=== PATIENT | female | born 1945 ===

== ENCOUNTER 2016-10-17 09:16 | Emergency (ER) | payer MEDICARE ==
[2016-10-17 09:30] VITALS: BMI 31.1
[2016-10-17] MEDS ORDERED: Sodium Chloride 0.9% 1,000 ML IV STA (09:56)
[2016-10-17] MEDS ORDERED: Sodium Chloride 0.9% 1,000 ML ONE (10:13)
--- NOTE | 2016-10-17 10:13 | C.PDOC ---
History Of Present Illness 71 y/o female presents to the ED complaining that she ran out of her insulin and syringes. Patient reports that she is a visitor from [facility] with history of diabetes and states that her sugar was 250 this morning. She also complains of abdominal pain to the RUQ x 3 days. Patient admits to history of cholecystectomy. Denies fevers, chills, nausea, vomiting, dizziness, chest pain , shortness of breath, urinary symptoms, or other complaints. Chief Complaint (Nursing): High Blood Sugar History Per: Patient History/Exam Limitations: no limitations Onset/Duration Of Symptoms: Days, Persistent Current Symptoms Are (Timing): Still Present Current Diabetic Medications: Insulin Causative (Exacerbating) Factor(s): Missed Taking Medication Treatment Prior To Provider Evaluation: None Recent travel outside of the [place]: Yes ([facility]) Past Medical History Reviewed: Historical Data, Nursing Documentation, Vital Signs Vital Signs: Last Vital Signs Temp 98.1 F 10/17/16 15:46 Pulse 70 10/17/16 15:46 Resp 20 10/17/16 15:46 BP 146/66 10/17/16 15:46 Pulse Ox 98 10/17/16 15:46 - Medical History PMH: Arthritis, Diabetes, HTN Surgical History: Cholecystectomy Other Surgeries: hysterectomy, Lt. knee surgery Family History: States: Unknown Family Hx - Social History Hx Tobacco Use: No Hx Alcohol Use: No Hx Substance Use: No - Immunization History Hx Tetanus Toxoid Vaccination: No Hx Influenza Vaccination: No Hx Pneumococcal Vaccination: No Review Of Systems Except As Marked, All Systems Reviewed And Found Negative. Constitutional: Positive for: Other (elevated blood sugar). Negative for: Fever , Chills Cardiovascular: Negative for: Chest Pain Respiratory: Negative for: Shortness of Breath Gastrointestinal: Positive for: Abdominal Pain (RUQ). Negative for: Nausea, Vomiting Genitourinary: Negative for: Dysuria, Hematuria Neurological: Negative for: Dizziness Physical Exam - Physical Exam Appears: Non-toxic, No Acute Distress Skin: Normal Color, Warm, Dry Head: Atraumatic, Normacephalic Eye(s): bilateral: Normal Inspection, PERRL Oral Mucosa: Moist Neck: Normal ROM, Supple Chest: Symmetrical Cardiovascular: Rhythm Regular Respiratory: Normal Breath Sounds, No Rales, No Rhonchi, No Wheezing Gastrointestinal/Abdominal: Soft, Tenderness (RUQ), No Guarding, No Rebound, Other (large post operative scar) Back: Normal Inspection, No CVA Tenderness Extremity: Normal ROM, No Swelling Neurological/Psych: Oriented x3, Normal Speech, Normal Cognition ED Course And Treatment - Laboratory Results Result Diagrams: 10/17/16 10:14 10/17/16 10:14 O2 Sat by Pulse Oximetry: 98 (ra) Pulse Ox Interpretation: Normal - Other Rad Chest X-Ray X-Ray: Viewed By Me, Read By Radiologist Interpretation: Accession No. : [id number]. Patient Name / ID : ALEJANDRO ROSALES / [id number]. Exam Date : 10/17/2016 11:25:43 ( Addendum_Approved ). Study Comment : Sex / Age : F / 71Y. Creator : Venus Dennis MD. Dictator : Venus Dennis MD. Pest Control Specialist : Lozenge Maker Helper : Venus Dennis MD. Approver2 : Report Date : 10/17/2016 12:04:24. My Comment : . Upon re- evaluation, there is a nodular opacity adjacent to the aortic arch in the left upper lobe of unclear etiology. Recommend PA lateral chest radiograph for better visualization. [ Addendum Report Added by Venus Dennis MD at 10/17/2016 12:09: 39 ]. HISTORY: RUQ pain. COMPARISON: No prior. FINDINGS: LUNGS: Increased pulmonary vascular congestion. PLEURA: No significant pleural effusion identified, no pneumothorax apparent. CARDIOVASCULAR: Normal. OSSEOUS STRUCTURES: The osseous structures demonstrate degenerative changes. VISUALIZED UPPER ABDOMEN: Upper abdomen is suboptimally evaluated. OTHER FINDINGS: None. IMPRESSION: Increased pulmonary vascular congestion. CXR X-Ray: Viewed By Me, Read By Radiologist Interpretation: Pest Control Specialist : Lozenge Maker Helper : Venus Dennis MD. Approver2 : Report Date : 10/17/2016 15:05:34. My Comment : . HISTORY: nodule? COMPARISON: 10/17/2016. TECHNIQUE: Chest PA and lateral. FINDINGS: LUNGS: Bilateral hilar enlargement. Mild pulmonary vascular congestion. Previously identified opacity adjacent to the aortic arch on the left again seen however appears less conspicuous. PLEURA: No significant pleural effusion identified. No pneumothorax apparent. CARDIOVASCULAR: Large cardiomediastinal silhouette. OSSEOUS STRUCTURES: The osseous structures demonstrate degenerative changes. VISUALIZED UPPER ABDOMEN: Normal. OTHER FINDINGS: None. IMPRESSION: Previously identified opacity adjacent to the aortic arch again seen however appears less conspicuous. Follow-up chest radiograph can be obtained in 2 weeks to evaluate for resolution. If at that time, the opacity persists, chest CT should be obtained. Bilateral hilar enlargement with mild pulmonary vascular congestion. Enlarged cardiomediastinal silhouette. Discussed with KAROLINE Faye at approximately 3 p.m. on 10/17/2016. - CT Scan/US Ultrasound Other Rad Studies (CT/US): Read By Radiologist, Radiology Report Reviewed CT/US Interpretation: Creator : Pat Corbett MD. Dictator : Pat Corbett MD. Pest Control Specialist : Lozenge Maker Helper : Pat Corbett MD. Approver2 : Report Date : 10/17/2016 11:10:35. My Comment : . HISTORY: RUQ abd pain. COMPARISON: None available. TECHNIQUE: Sonographic evaluation of the right upper quadrant of the abdomen. FINDINGS: LIVER: Measures 18.4 cm in length. Echogenic liver may be seen in setting of hepatic parenchymal disease or fatty infiltration. No focal hepatic mass identified. The main portal vein appears patent with normal directional flow. No intrahepatic bile duct dilatation. GALLBLADDER: Cholecystectomy. COMMON BILE DUCT: Measures 7 mm, within normal limits for patient's age. PANCREAS: Not well-visualized. RIGHT KIDNEY: Measures 11.8 x 4.0 x 4.8 cm. No obstructing calculus or hydronephrosis identified. AORTA: Limited visualization appears grossly unremarkable. IVC: Limited visualization appears grossly unremarkable. OTHER FINDINGS: None . IMPRESSION: Echogenic liver may be seen in setting of hepatic parenchymal disease or fatty infiltration. Cholecystectomy. Progress Note: Chest X-Ray, Ultrasound, and Blood Work were ordered. Patient was treated with Protonix IVP, Toradol IVP, and IV Fluids. Family is at bedside. patient sts she will leave back home in 1 week. Rx for Insulin given. Copies of labs, xrays and US were given and patient was instructed to repeat CXR in 2 weeks. Disposition - Disposition Disposition: HOME/ ROUTINE Disposition Time: 14:25 Condition: STABLE Additional Instructions: Follow up with PMD/Clinic as instructed. Return to ED if feel worse. Prescriptions: Insulin NPH Hum/Reg Insulin Hm [Humulin 70-30 Vial] 25 unit SC BID #1 vial Syringe and Needle,Insulin,1Ml [Insulin Syringe] 1 each SQ BID #60 disp.syrin Triamcinolone 0.025 % [Triamcinolone 0.025 % Cream] 1 appl EXT BID #1 tube Instructions: Diabetes Mellitus Type 1 in Adults (ED), Pulmonary Nodules (ED) Print Language: CHINESE - Clinical Impression Clinical Impression: Hyperglycemia - PA / ACCESS SERVICE REPRESENTATIVE / Resident Statement MD/DO has reviewed & agrees with the documentation as recorded. - Scribe Statement The provider has reviewed the documentation as recorded by the Scribe (Tequila Sal) All medical record entries made by the Scribe were at my direction and personally dictated by me. I have reviewed the chart and agree that the record accurately reflects my personal performance of the history, physical exam, medical decision making, and the department course for this patient. I have also personally directed, reviewed, and agree with the discharge instructions and disposition.
[2016-10-17 10:22] LABS: BASO # 0.1 K/uL (0.0-0.2); BASO % 0.6 % (0.0-2.0); EOS # 0.4 K/uL (0.0-0.7); EOS % 3.4 % (0.0-4.0); HEMATOCRIT 33.3 % (34.0-47.0); LYMPH % 27.6 % (20.0-40.0); MEAN CELL VOLUME 85.7 fL (81.0-99.0); MEAN CORPUSCULAR HEMOGLOBIN 29.2 pg (27.0-31.0); MEAN CORPUSCULAR HGB CONC 34.1 g/dL (33.0-37.0); MEAN PLATELET VOLUME 8.2 fL (7.2-11.7); MONO # 0.8 K/uL (0.0-0.8); MONO % 7.3 % (0.0-10.0); RED CELL DISTRIBUTION WIDTH 13.2 % (11.5-14.5); WHITE BLOOD COUNT 10.9 K/uL (4.8-10.8)
[2016-10-17 10:30] LABS: CHLORIDE 96 mmol/L (98-107); SODIUM 139 mmol/L (132-148)
[2016-10-17 10:33] LABS: ALKALINE PHOSPHATASE 101 U/L (38-126); ALT/SGPT 35 U/L (9-52); AST/SGOT 31 U/L (14-36); BILIRUBIN,TOTAL 0.5 mg/dL (0.2-1.3); BLOOD UREA NITROGEN 13 mg/dL (7-17); CALCIUM 9.3 mg/dl (8.6-10.4); CARBON DIOXIDE 27 mmol/L (22-30); GFR AFRICAN-AMERICAN > 60; GLUCOSE,RANDOM 203 mg/dL (65-105); TOTAL PROTEIN 7.5 g/dL (6.3-8.3)
--- NOTE | 2016-10-17 11:11 | US ---
HISTORY: RUQ abd pain COMPARISON: None available. TECHNIQUE: Sonographic evaluation of the right upper quadrant of the abdomen. FINDINGS: LIVER: Measures 18.4 cm in length. Echogenic liver may be seen in setting of hepatic parenchymal disease or fatty infiltration. No focal hepatic mass identified. The main portal vein appears patent with normal directional flow. No intrahepatic bile duct dilatation. GALLBLADDER: Cholecystectomy. COMMON BILE DUCT: Measures 7 mm, within normal limits for patient's age. PANCREAS: Not well-visualized. RIGHT KIDNEY: Measures 11.8 x 4.0 x 4.8 cm. No obstructing calculus or hydronephrosis identified. AORTA: Limited visualization appears grossly unremarkable. IVC: Limited visualization appears grossly unremarkable. OTHER FINDINGS: None . IMPRESSION: Echogenic liver may be seen in setting of hepatic parenchymal disease or fatty infiltration. Cholecystectomy.
--- NOTE | 2016-10-17 12:05 | RAD ---
HISTORY: RUQ pain COMPARISON: No prior. FINDINGS: LUNGS: Increased pulmonary vascular congestion. PLEURA: No significant pleural effusion identified, no pneumothorax apparent. CARDIOVASCULAR: Normal. OSSEOUS STRUCTURES: The osseous structures demonstrate degenerative changes. VISUALIZED UPPER ABDOMEN: Upper abdomen is suboptimally evaluated. OTHER FINDINGS: None. IMPRESSION: Increased pulmonary vascular congestion.
--- NOTE | 2016-10-17 15:07 | RAD ---
HISTORY: nodule? COMPARISON: 10/17/2016 TECHNIQUE: Chest PA and lateral FINDINGS: LUNGS: Bilateral hilar enlargement. Mild pulmonary vascular congestion. Previously identified opacity adjacent to the aortic arch on the left again seen however appears less conspicuous. PLEURA: No significant pleural effusion identified. No pneumothorax apparent. CARDIOVASCULAR: Large cardiomediastinal silhouette. OSSEOUS STRUCTURES: The osseous structures demonstrate degenerative changes. VISUALIZED UPPER ABDOMEN: Normal. OTHER FINDINGS: None. IMPRESSION: Previously identified opacity adjacent to the aortic arch again seen however appears less conspicuous. Follow-up chest radiograph can be obtained in 2 weeks to evaluate for resolution. If at that time, the opacity persists, chest CT should be obtained. Bilateral hilar enlargement with mild pulmonary vascular congestion. Enlarged cardiomediastinal silhouette. Discussed with KAROLINE Faye at approximately 3 p.m. on 10/17/2016.
[2016-10-17 15:46] VITALS: BP 146/66; PULSE 70; RESP 20; TEMP 98.1; O2SAT 98
== END 2016-10-17 16:08 | disposition home or self-care (01) ==
LOC: C.ER 09:16
DX: E11.65 Type 2 diabetes mellitus with hyperglycemia (principal); Z79.4 Long term (current) use of insulin
CPT/HCPCS: 71010; 71020; 76705; 80053; 82948; 83690; 85025; 96361; 96374; 96375; 99285; C9113; J1885; J7040